=== PATIENT | female | born 1995 | race Caucasian/White ===

== ENCOUNTER 2016-07-04 11:29 | Inpatient (IN) | payer SELFPAY ==
[~2016-07-04] VITALS: Ht 162.6 cm; Wt 63.0 kg
[2016-07-04 11:35] VITALS: BP 114/70
[2016-07-04] MEDS ORDERED: MORPHINE SULFATE 4 MG/ML DISP.SYRIN. IV PRN (12:00)
[2016-07-04] MEDS ORDERED: oxyCODONE/APAP 5/325 1 TAB TABLET PO PRN (12:00)
[2016-07-04] MEDS ORDERED: VANCOMYCIN PER PHARMACY MC PRN (12:00)
[2016-07-04] MEDS ORDERED: ONDANSETRON PF 4 MG/2 ML VIAL. ONE (12:11)
[2016-07-04] MEDS ORDERED: DEXAMETHASONE SOD PHOS 20 MG/5 ML VIAL. ONE (12:11)
[2016-07-04] MEDS ORDERED: MIDAZOLAM HCL/PF 2 MG/2 ML VIAL. ONE (12:11)
[2016-07-04] MEDS ORDERED: LIDOCAINE 2% 100 MG/5 ML SYRINGE. ONE (12:11)
[2016-07-04] MEDS ORDERED: fentaNYL PF VIAL 100 MCG/2 ML VIAL ONE ×2 (12:11→13:25)
[2016-07-04] MEDS ORDERED: PROPOFOL 20 ML IV ONE ×2 (12:11→13:24)
[2016-07-04] MEDS ORDERED: DESFLURANE 61 TO 120 MINUTES IH ONE (12:11)
--- NOTE | 2016-07-04 12:42 | PDOC2 ---
CONSULT Date of Consult Date of Consult DATE: 07/04/16 TIME: 12:29 Reason for Consult Reason for Consult: perirectal abscess Identification/Chief Complaint Chief Complaint Lucille rectal pain and swelling Source Source: Patient History of Present Illness Reason for Visit: 20yo female with 3 day history of perirectal swelling and pain with fever. 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 Past Medical History Cardiovascular: No pertinent hx Pulmonary: No pertinent hx GI: No pertinent hx Heme/Onc: No pertinent hx Hepatobiliary: No pertinent hx Psych: No pertinent hx Rheumatologic: No pertinent hx Infectious disease: Other (MRSA) ENT: No pertinent hx Renal/: No pertinent hx Endocrine: No pertinent hx Dermatology: No pertinent hx Past Surgical History Past Surgical History: Other (I&D) Family History Family History: No Significant Social History No ALCOHOL: none Drugs: None Lives: with Family Current Medications Current Medications Current Medications Vancomycin HCl (Vanco Per Pharmacy) 1 each PRN DAILY PRN [facility] SEE COMMENTS; Start 07/04/16 at 12:00; Status UNV Docusate Sodium (Colace) 100 mg DAILY PO ; Start 07/05/16 at 09:00; Status UNV Polyethylene Glycol (miraLAX PACKET) 17 gm DAILY PO ; Start 07/05/16 at 09:00; Status UNV Oxycodone/ Acetaminophen (Percocet 5/325) 1 tab PRN Q4HRS PRN PO PAIN; Start at 12:00; Status UNV Morphine Sulfate 4 mg PRN Q2HR PRN IV PAIN; Start 07/04/16 at 12:00; Status UNV Desflurane (Suprane) 60 ml STK-MED ONCE IH ; Start 07/04/16 at 12:11; Stop at 12:12; Status DC Midazolam HCl (Versed) 2 mg STK-MED ONCE .ROUTE ; Start 07/04/16 at 12:11; Stop 07/04/16 at 12:12; Status DC Fentanyl Citrate (Fentanyl 2ml Vial) 100 mcg STK-MED ONCE .ROUTE ; Start at 12:11; Stop 07/04/16 at 12:12; Status DC Propofol 20 ml @ As Directed STK-MED ONCE IV ; Start 07/04/16 at 12:11; Stop 07/04 at 12:12; Status DC Ondansetron HCl (Zofran) 4 mg STK-MED ONCE .ROUTE ; Start 07/04/16 at 12:11; Stop 07/04/16 at 12:12; Status DC Dexamethasone Sodium Phosphate (Decadron) 20 mg STK-MED ONCE .ROUTE ; Start 07/04 at 12:11; Stop 07/04/16 at 12:12; Status DC Lidocaine HCl (Lidocaine HCl 2% Abboject) 100 mg STK-MED ONCE .ROUTE ; Start 07/04/16 at 12:11; Stop 07/04/16 at 12:12; Status DC ROS Gastrointestinal: Yes Other (perirectal pain) Physical Exam General: Alert, Oriented X3, Cooperative, moderate distress HEENT: Atraumatic, PERRLA, EOMI Lungs: Clear to auscultation, Normal air movement Heart: Regular rate, No murmurs Abdomen: Normal bowel sounds, Soft, No tenderness Extremities: No edema Skin: No significant lesion, Other (perirectal mass Tender to palpation) Neuro: Normal speech Psych/Mental Status: Mental status NL Vitals VITALS Vital Signs Date Time Temp Pulse Resp B/P (MAP) Pulse Ox O2 Delivery O2 Flow Rate FiO2 07/04/16 11:35 101.8 85 18 114/70 (85) 98 101.8 Assessment/Plan Assessment/Plan Perirectal abscess Plan I&D NEYDA RIDDLE MD July 04, 2016 12:42
[2016-07-04] MEDS ORDERED: VANCOMYCIN 1.5 GM in IV NORMAL SALINE 500ML BAG 500 ML IV ONE (13:30)
--- NOTE | 2016-07-04 13:33 | PDOC ---
BRIEF OPERATIVE NOTE Date: July 04, 2016 Pre-Op Diagnosis Perirectal abscess Post-Op Diagnosis Same Procedure Performed I&D perirectal abscess Surgeon Korey Anesthesia Type: General Blood Loss 10ml Specimens Obtained Cultures Findings as above Complications None NEYDA RIDDLE MD July 04, 2016 13:33
[2016-07-04] MEDS: POLYETHYLENE GLYCOL 3350 17 GM PACKET. PO SCH (15:05)
[2016-07-04] MEDS: DOCUSATE SODIUM 100 MG CAPSULE. PO SCH (15:06)
--- NOTE | 2016-07-04 15:53 | OP ---
DATE OF SURGERY: 07/04/2016 PREOPERATIVE DIAGNOSIS: Perirectal abscess. POSTOPERATIVE DIAGNOSIS: Perirectal abscess. PROCEDURE: Incision and drainage of perirectal abscess. SURGEON: Yordan Riddle M.D. INDICATIONS: The patient is a 20-year-old female who has had 3-day history of swelling on the left side of the rectum with pain. PROCEDURE PERFORMED: Incision and drainage was explained to the patient in detail. Risks, benefits were also discussed including bleeding and infection. Alternatives of this procedure were also discussed with the patient, who seemed to understand and gave verbal and written consent to have the procedure performed. DESCRIPTION OF PROCEDURE: The patient was taken to the operating room and placed in the supine position, general anesthesia was initiated. Once the patient was asleep and intubated, she was placed in low lithotomy positioning. Her perineum was prepped and draped in usual sterile fashion using Betadine scrub and solution. Using a 15 blade scalpel, the fluctuant area was incised. There was quite a bit of purulent material expressed. This was then flushed with saline. The wound was then packed with a quarter inch iodoform Nu Gauze, dressed with ABD, and mesh panties. The patient was awakened, extubated in the operating room, taken to recovery room in stable condition. All sponge, instrument counts listed as correct. Estimated blood loss 10 mL. YORDAN RIDDLE MD DR: KAUSHIK/ham JOB#: [id number] / [id number]
--- NOTE | 2016-07-04 16:32 | PDOC1 ---
History and Physical Date of Admission Date of Admission DATE: 07/04/16 TIME: 16:23 Identification/Chief Complaint Chief Complaint rectal pain Problems: Source Source: Chart review, Patient History of Present Illness History of Present Illness pt presented to the ER at [facility] today, complaining of new rectal pain, w. 3-day history of swelling on the left side of the rectum with pain. exam revealed small perirectal abcess, w/ erythema transfer here for surg eval, pt taken to OR by Dr. Nair for I+D, before I had seen pt. 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 Past Medical History Cardiovascular: No pertinent hx Pulmonary: No pertinent hx GI: No pertinent hx Heme/Onc: No pertinent hx Hepatobiliary: No pertinent hx Psych: No pertinent hx Rheumatologic: No pertinent hx Infectious disease: Other (MRSA) ENT: No pertinent hx Renal/: No pertinent hx Endocrine: No pertinent hx Dermatology: No pertinent hx Past Surgical History Past Surgical History: Other (I&D) Family History Family History: No Significant Social History Smoke: <1 pack per day ALCOHOL: none Drugs: None Current Medications Current Medications Current Medications Vancomycin HCl (Vanco Per Pharmacy) 1 each PRN DAILY PRN [facility] SEE COMMENTS; Start 07/04/16 at 12:00 Docusate Sodium (Colace) 100 mg DAILY PO Last administered on 07/04/16t 15:06; Start 07/04/16 at 14:00 Polyethylene Glycol (miraLAX PACKET) 17 gm DAILY PO Last administered on t 15:05; Start 07/04/16 at 14:00 Oxycodone/ Acetaminophen (Percocet 5/325) 1 tab PRN Q4HRS PRN PO PAIN; Start at 12:00 Morphine Sulfate 4 mg PRN Q2HR PRN IV PAIN; Start 07/04/16 at 12:00 Desflurane (Suprane) 60 ml STK-MED ONCE IH ; Start 07/04/16 at 12:11; Stop at 12:12; Status DC Midazolam HCl (Versed) 2 mg STK-MED ONCE .ROUTE ; Start 07/04/16 at 12:11; Stop 07/04/16 at 12:12; Status DC Fentanyl Citrate (Fentanyl 2ml Vial) 100 mcg STK-MED ONCE .ROUTE ; Start at 12:11; Stop 07/04/16 at 12:12; Status DC Propofol 20 ml @ As Directed STK-MED ONCE IV ; Start 07/04/16 at 12:11; Stop 07/04 at 12:12; Status DC Ondansetron HCl (Zofran) 4 mg STK-MED ONCE .ROUTE ; Start 07/04/16 at 12:11; Stop 07/04/16 at 12:12; Status DC Dexamethasone Sodium Phosphate (Decadron) 20 mg STK-MED ONCE .ROUTE ; Start 07/04 at 12:11; Stop 07/04/16 at 12:12; Status DC Lidocaine HCl (Lidocaine HCl 2% Abboject) 100 mg STK-MED ONCE .ROUTE ; Start 07/04/16 at 12:11; Stop 07/04/16 at 12:12; Status DC Vancomycin HCl 1.5 gm/Sodium Chloride 500 ml @ 250 mls/hr 1X ONCE IV Last administered on 07/04/16t 15:14; Start 07/04/16 at 13:30; Stop 07/04/16 at 15:29; Status DC Propofol 20 ml @ As Directed STK-MED ONCE IV ; Start 07/04/16 at 13:24; Stop 07/04 at 13:25; Status DC Fentanyl Citrate (Fentanyl 2ml Vial) 100 mcg STK-MED ONCE .ROUTE ; Start at 13:25; Stop 07/04/16 at 13:26; Status DC Ketorolac Tromethamine (Toradol) 15 mg Q6HRS IV ; Start 07/04/16 at 18:00; Stop 07/05/16 at 17:59 Allergies Allergies: Coded Allergies: No Known Drug Allergies (Unverified , 07/04/16) ROS General: No: Chills, Night Sweats, Fatigue, Malaise, Appetite, Other PSYCHOLOGICAL ROS: No: Anxiety, Behavioral Disorder, Concentration difficultie , Decreased libido, Depression, Disorientation, Hallucinations, Hostility, Irritablity, Memory difficulties, Mood Swings, Obsessive thoughts, Physical abuse, Sexual abuse, Sleep disturbances, Suicidal ideation, Other Eyes: No Blurry vision, No Decreased vision, No Double vision, No Dry eyes, No Excessive tearing, No Eye Pain, No Itchy Eyes, No Loss of vision, No Photophobia , No Scotomata, No Uses contacts, No Uses glasses, No Other HEENT: No: Heacaches, Visual Changes, Hearing change, Nasal congestion, Nasal discharge, Oral lesions, Sinus pain, Sore Throat, Epistaxis, Sneezing, Snoring, Tinnitus, Vertigo, Vocal changes, Other Respiratory: No: Cough, Hemoptysis, Orthopnea, Pleuritic Pain, Shortness of breath, SOB with excertion, Sputum Changes, Stridor, Tachypnea, Wheezing, Other Cardiovascular: No Chest Pain, No Palpitations, No Orthopnea, No Paroxysmal Noc. Dyspnea, No Edema, No Lt Headedness, No Other Gastrointestinal: No Nausea, No Vomiting, No Abdominal Pain, No Diarrhea, No Constipation, No Melena, No Hematochezia, No Other Genitourinary: No Dysuria, No Frequency, No Incontinence, No Hematuria, No Retention, No Discharge, No Urgency, No Pain, No Flank Pain, No Other, No , No , No , No , No , No , No Musculoskeletal: No Gait Disturbance, No Joint Pain, No Joint Stiffness, No Joint Swelling, No Muscle Pain, No Muscular Weakness, No Pain In:, No Swelling In:, No Other Neurological: No Behavorial Changes, No Bowel/Bladder ControlChng, No Confusion , No Dizziness, No Gait Disturbance, No Headaches, No Impaired Coord/balance, No Memory Loss, No Numbness/Tingling, No Seizures, No Speech Problems, No Tremors, No Visual Changes, No Weakness, No Other Skin: No Dry Skin, No Eczema, No Hair Changes, No Lumps, No Mole Changes, No Mottling, No Nail Changes, No Pruritus, No Rash, No Skin Lesion Changes, No Other, No Acne Physical Exam General: Alert, Oriented X3, Cooperative, No acute distress HEENT: Atraumatic, PERRLA, EOMI, Mucous membr. moist/pink Heart: no gallops, no murmurs Abdomen: Normal bowel sounds, Soft Rectal Exam: not examined Extremities: No clubbing, No cyanosis, No edema, Normal pulses Skin: No breakdown, No significant lesion Neuro: Normal speech, Normal tone, Sensation intact, Cranial nerves 3-12 NL Psych/Mental Status: Mental status NL, Mood NL Vitals Vitals Vital Signs Date Time Temp Pulse Resp B/P (MAP) Pulse Ox O2 Delivery O2 Flow Rate FiO2 07/04/16 14:39 99.0 82 20 110/62 95 Room Air 99.0 07/04/16 13:54 8 Labs Labs Na 142, K+ 4.1, Cr. 0.8, glucose 105 WBC 18 VTE Prophylaxis Ordered VTE Prophylaxis Devices: No VTE Pharmacological Prophylaxi: Yes Assessment/Plan Assessment/Plan sepsis,. WBC 18, fever, tachycardia, tachypnea, cx done at outside ER consult ID perirectal abcess hx MRSA, dosed vanco anxiety d/o, no meds tobaccoism, pre-comtemplation, self medicates for anxiety admit wound care NIURKA LEW MD July 04, 2016 16:32
[2016-07-04] MEDS: KETOROLAC 15 MG/ML VIAL. IV SCH ×2 (18:15→23:09)
[2016-07-04 19:24] VITALS: BP 124/74
[2016-07-04 19:25] VITALS: BP 124/76
[2016-07-04] MEDS: VANCOMYCIN 1 GM in IV NORMAL SALINE 250ML 250 ML IV SCH (23:10)
[2016-07-04 23:15] VITALS: BP 109/52
[2016-07-05 03:00] VITALS: BP 102/50
[2016-07-05 05:23] LABS: BASO # 0.1 x10^3/uL (0.0-0.2); BASO % 1 % (0-3); EOS % 1 % (0-3); HEMATOCRIT 34.7 % (36.0-47.0); HEMOGLOBIN 11.5 g/dL (12.0-15.5); LYMPH % 12 % (24-48); MEAN CORPUSCULAR HEMOGLOBIN 28 pg (25-35); MEAN CORPUSCULAR HGB CONC 33 g/dL (31-37); MEAN CORPUSCULAR VOLUME 85 fL (79-100); MONO % 6 % (0-9); NEUT % 81 % (31-73); PLATELET COUNT 219 x10^3/uL (140-400); RED BLOOD COUNT 4.11 x10^6/uL (3.50-5.40); RED CELL DISTRIBUTION WIDTH 13.6 % (11.5-14.5); WHITE BLOOD COUNT 16.4 x10^3/uL (4.0-11.0)
[2016-07-05 05:51] LABS: ALBUMIN 2.7 g/dL (3.4-5.0); ALBUMIN/GLOBULIN RATIO 0.8 (1.0-1.7); CALCIUM 8.8 mg/dL (8.5-10.1); CREATININE 0.5 mg/dL (0.6-1.0); GFR 154.3; POTASSIUM 4.1 mmol/L (3.5-5.1); TOTAL BILIRUBIN 0.2 mg/dL (0.2-1.0); TOTAL PROTEIN 6.3 g/dL (6.4-8.2)
[2016-07-05] MEDS: KETOROLAC 15 MG/ML VIAL. IV SCH ×2 (06:48→12:00)
[2016-07-05] MEDS: VANCOMYCIN 1 GM in IV NORMAL SALINE 250ML 250 ML IV SCH (06:48)
[2016-07-05 07:48] VITALS: BP 111/60
[2016-07-05] MEDS ORDERED: HYDROcodone/APAP 5/325MG 1 TAB TABLET PO PRN (08:45)
[2016-07-05] MEDS: DOCUSATE SODIUM 100 MG CAPSULE. PO SCH (08:57)
[2016-07-05] MEDS: POLYETHYLENE GLYCOL 3350 17 GM PACKET. PO SCH (08:57)
--- NOTE | 2016-07-05 09:05 | PDOC ---
[employer] 07/05/16 0905: SURGICAL PROGRESS NOTE Subjective tolerating diet some pain to wound, although greatly improved from admission Vital Signs Vital Signs Date Time Temp Pulse Resp B/P (MAP) Pulse Ox O2 Delivery O2 Flow Rate FiO2 07/05/16 07:48 98.1 61 18 111/60 (77) 98 Room Air 98.1 07/04/16 20:00 8.0 I&O Intake and Output 07/05/16 07:00 Intake Total 1097 ml Output Total 0 ml Balance 1097 ml Intake Oral 350 ml IV Total 747 ml Output Urine Total 0 ml # Voids 2 General: Alert, Oriented X3, Cooperative, No acute distress Skin: Other (perirectal wound some induration, packing in place) Labs Laboratory Tests Test 07/05/16 04:43 07/05/16 04:48 Sodium Level 140 mmol/L (136-145) Potassium Level 4.1 mmol/L (3.5-5.1) Chloride Level 107 mmol/L (98-107) Carbon Dioxide Level 24 mmol/L (21-32) Anion Gap 9 (6-14) Blood Urea Nitrogen 12 mg/dL (7-20) Creatinine 0.5 mg/dL (0.6-1.0) Estimated GFR (Cockcroft-Gault) 154.3 BUN/Creatinine Ratio 24 (6-20) Glucose Level 117 mg/dL (70-99) Calcium Level 8.8 mg/dL (8.5-10.1) Total Bilirubin 0.2 mg/dL (0.2-1.0) Aspartate Amino Transf (AST/SGOT) 11 U/L (15-37) Alanine Aminotransferase (ALT/SGPT) 16 U/L (14-59) Alkaline Phosphatase 49 U/L (46-116) Total Protein 6.3 g/dL (6.4-8.2) Albumin 2.7 g/dL (3.4-5.0) Albumin/Globulin Ratio 0.8 (1.0-1.7) White Blood Count 16.4 x10^3/uL (4.0-11.0) Red Blood Count 4.11 x10^6/uL (3.50-5.40) Hemoglobin 11.5 g/dL (12.0-15.5) Hematocrit 34.7 % (36.0-47.0) Mean Corpuscular Volume 85 fL (79-100) Mean Corpuscular Hemoglobin 28 pg (25-35) Mean Corpuscular Hemoglobin Concent 33 g/dL (31-37) Red Cell Distribution Width 13.6 % (11.5-14.5) Platelet Count 219 x10^3/uL (140-400) Neutrophils (%) (Auto) 81 % (31-73) Lymphocytes (%) (Auto) 12 % (24-48) Monocytes (%) (Auto) 6 % (0-9) Eosinophils (%) (Auto) 1 % (0-3) Basophils (%) (Auto) 1 % (0-3) Neutrophils # (Auto) 13.3 x10^3uL (1.8-7.7) Lymphocytes # (Auto) 2.0 x10^3/uL (1.0-4.8) Monocytes # (Auto) 1.0 x10^3/uL (0.0-1.1) Eosinophils # (Auto) 0.1 x10^3/uL (0.0-0.7) Basophils # (Auto) 0.1 x10^3/uL (0.0-0.2) Laboratory Tests Test 07/05/16 04:43 07/05/16 04:48 Sodium Level 140 mmol/L (136-145) Potassium Level 4.1 mmol/L (3.5-5.1) Chloride Level 107 mmol/L (98-107) Carbon Dioxide Level 24 mmol/L (21-32) Anion Gap 9 (6-14) Blood Urea Nitrogen 12 mg/dL (7-20) Creatinine 0.5 mg/dL (0.6-1.0) Estimated GFR (Cockcroft-Gault) 154.3 BUN/Creatinine Ratio 24 (6-20) Glucose Level 117 mg/dL (70-99) Calcium Level 8.8 mg/dL (8.5-10.1) Total Bilirubin 0.2 mg/dL (0.2-1.0) Aspartate Amino Transf (AST/SGOT) 11 U/L (15-37) Alanine Aminotransferase (ALT/SGPT) 16 U/L (14-59) Alkaline Phosphatase 49 U/L (46-116) Total Protein 6.3 g/dL (6.4-8.2) Albumin 2.7 g/dL (3.4-5.0) Albumin/Globulin Ratio 0.8 (1.0-1.7) White Blood Count 16.4 x10^3/uL (4.0-11.0) Red Blood Count 4.11 x10^6/uL (3.50-5.40) Hemoglobin 11.5 g/dL (12.0-15.5) Hematocrit 34.7 % (36.0-47.0) Mean Corpuscular Volume 85 fL (79-100) Mean Corpuscular Hemoglobin 28 pg (25-35) Mean Corpuscular Hemoglobin Concent 33 g/dL (31-37) Red Cell Distribution Width 13.6 % (11.5-14.5) Platelet Count 219 x10^3/uL (140-400) Neutrophils (%) (Auto) 81 % (31-73) Lymphocytes (%) (Auto) 12 % (24-48) Monocytes (%) (Auto) 6 % (0-9) Eosinophils (%) (Auto) 1 % (0-3) Basophils (%) (Auto) 1 % (0-3) Neutrophils # (Auto) 13.3 x10^3uL (1.8-7.7) Lymphocytes # (Auto) 2.0 x10^3/uL (1.0-4.8) Monocytes # (Auto) 1.0 x10^3/uL (0.0-1.1) Eosinophils # (Auto) 0.1 x10^3/uL (0.0-0.7) Basophils # (Auto) 0.1 x10^3/uL (0.0-0.2) Problem List s/p I&D perirectal abscess daily packing of wound continue abx Problems: NEYDA RIDDLE MD 07/05/16 0925: SURGICAL PROGRESS NOTE Assessment/Plan Agree with Catracho's assessment and plan. Problems: [employer] July 05, 2016 09:05 NEYDA RIDDLE MD July 05, 2016 09:25
[2016-07-05 09:30] LABS: PLT ESTIMATE ADEQUATE (ADEQUATE)
--- NOTE | 2016-07-05 11:11 | PDOC ---
Infectious Disease Note Subjective Subjective ROS ROS Vital Sign Vital Signs Vital Signs Date Time Temp Pulse Resp B/P (MAP) Pulse Ox O2 Delivery O2 Flow Rate FiO2 07/05/16 07:48 98.1 61 18 111/60 (77) 98 Room Air 98.1 07/04/16 20:00 8.0 Labs Lab Laboratory Tests Test 07/05/16 04:43 07/05/16 04:48 Sodium Level 140 mmol/L (136-145) Potassium Level 4.1 mmol/L (3.5-5.1) Chloride Level 107 mmol/L (98-107) Carbon Dioxide Level 24 mmol/L (21-32) Anion Gap 9 (6-14) Blood Urea Nitrogen 12 mg/dL (7-20) Creatinine 0.5 mg/dL (0.6-1.0) Estimated GFR (Cockcroft-Gault) 154.3 BUN/Creatinine Ratio 24 (6-20) Glucose Level 117 mg/dL (70-99) Calcium Level 8.8 mg/dL (8.5-10.1) Total Bilirubin 0.2 mg/dL (0.2-1.0) Aspartate Amino Transf (AST/SGOT) 11 U/L (15-37) Alanine Aminotransferase (ALT/SGPT) 16 U/L (14-59) Alkaline Phosphatase 49 U/L (46-116) Total Protein 6.3 g/dL (6.4-8.2) Albumin 2.7 g/dL (3.4-5.0) Albumin/Globulin Ratio 0.8 (1.0-1.7) White Blood Count 16.4 x10^3/uL (4.0-11.0) Red Blood Count 4.11 x10^6/uL (3.50-5.40) Hemoglobin 11.5 g/dL (12.0-15.5) Hematocrit 34.7 % (36.0-47.0) Mean Corpuscular Volume 85 fL (79-100) Mean Corpuscular Hemoglobin 28 pg (25-35) Mean Corpuscular Hemoglobin Concent 33 g/dL (31-37) Red Cell Distribution Width 13.6 % (11.5-14.5) Platelet Count 219 x10^3/uL (140-400) Neutrophils (%) (Auto) 81 % (31-73) Lymphocytes (%) (Auto) 12 % (24-48) Monocytes (%) (Auto) 6 % (0-9) Eosinophils (%) (Auto) 1 % (0-3) Basophils (%) (Auto) 1 % (0-3) Neutrophils # (Auto) 13.3 x10^3uL (1.8-7.7) Lymphocytes # (Auto) 2.0 x10^3/uL (1.0-4.8) Monocytes # (Auto) 1.0 x10^3/uL (0.0-1.1) Eosinophils # (Auto) 0.1 x10^3/uL (0.0-0.7) Basophils # (Auto) 0.1 x10^3/uL (0.0-0.2) Segmented Neutrophils % 85 % (35-66) Band Neutrophils % 2 % (0-9) Lymphocytes % 7 % (24-48) Monocytes % 6 % (0-10) Platelet Estimate Adequate (ADEQUATE) Objective Assessment Lucille-rectal abscess - GNR s/p I and D, 5 Leukocytosis - s/p Dexamethasone h/o SSTI MRSA Plan Plan of Care Dose Invanz times one Home on po Augmentin F/u Jono 07/07 and if worsens needs to return Thank you # [id number] Attending Co-Sign Attending Co-Sign The patient was seen and interviewed as well as examined at the bedside. The chart was reviewed. The case was discussed. Agree with the plan of care. MY MCFARLANE APRN July 05, 2016 11:11 BROOKLYNN JEFFRIES MD July 05, 2016 12:57
[2016-07-05 11:22] VITALS: BP 123/75
--- NOTE | 2016-07-05 11:26 | PDOC ---
PROGRESS NOTES Chief Complaint Chief Complaint perirectal abcess s/p I and D 07/04/16 hx MRSA, dosed vanco anxiety d/o, noS tobaccoism, pre-comtemplation, self medicates for anxiety History of Present Illness History of Present Illness Wants to go home Wound looks good WBC 16 no fevers Plan: NO dc today per gS Follow ID and gS recs Dw RN and pt Vitals Vitals Vital Signs Date Time Temp Pulse Resp B/P (MAP) Pulse Ox O2 Delivery O2 Flow Rate FiO2 07/05/16 11:22 98.1 98 18 123/75 (91) 98 Room Air 98.1 07/04/16 20:00 8.0 Physical Exam General: Alert, Oriented X3, Cooperative, No acute distress Heart: Regular rate, No murmurs Abdomen: Normal bowel sounds, Soft Extremities: No clubbing, No cyanosis, No edema, Normal pulses Skin: Other (perirectal wound some induration, packing in place) Labs LABS Laboratory Tests Test 07/05/16 04:43 07/05/16 04:48 Sodium Level 140 mmol/L (136-145) Potassium Level 4.1 mmol/L (3.5-5.1) Chloride Level 107 mmol/L (98-107) Carbon Dioxide Level 24 mmol/L (21-32) Anion Gap 9 (6-14) Blood Urea Nitrogen 12 mg/dL (7-20) Creatinine 0.5 mg/dL (0.6-1.0) Estimated GFR (Cockcroft-Gault) 154.3 BUN/Creatinine Ratio 24 (6-20) Glucose Level 117 mg/dL (70-99) Calcium Level 8.8 mg/dL (8.5-10.1) Total Bilirubin 0.2 mg/dL (0.2-1.0) Aspartate Amino Transf (AST/SGOT) 11 U/L (15-37) Alanine Aminotransferase (ALT/SGPT) 16 U/L (14-59) Alkaline Phosphatase 49 U/L (46-116) Total Protein 6.3 g/dL (6.4-8.2) Albumin 2.7 g/dL (3.4-5.0) Albumin/Globulin Ratio 0.8 (1.0-1.7) White Blood Count 16.4 x10^3/uL (4.0-11.0) Red Blood Count 4.11 x10^6/uL (3.50-5.40) Hemoglobin 11.5 g/dL (12.0-15.5) Hematocrit 34.7 % (36.0-47.0) Mean Corpuscular Volume 85 fL (79-100) Mean Corpuscular Hemoglobin 28 pg (25-35) Mean Corpuscular Hemoglobin Concent 33 g/dL (31-37) Red Cell Distribution Width 13.6 % (11.5-14.5) Platelet Count 219 x10^3/uL (140-400) Neutrophils (%) (Auto) 81 % (31-73) Lymphocytes (%) (Auto) 12 % (24-48) Monocytes (%) (Auto) 6 % (0-9) Eosinophils (%) (Auto) 1 % (0-3) Basophils (%) (Auto) 1 % (0-3) Neutrophils # (Auto) 13.3 x10^3uL (1.8-7.7) Lymphocytes # (Auto) 2.0 x10^3/uL (1.0-4.8) Monocytes # (Auto) 1.0 x10^3/uL (0.0-1.1) Eosinophils # (Auto) 0.1 x10^3/uL (0.0-0.7) Basophils # (Auto) 0.1 x10^3/uL (0.0-0.2) Segmented Neutrophils % 85 % (35-66) Band Neutrophils % 2 % (0-9) Lymphocytes % 7 % (24-48) Monocytes % 6 % (0-10) Platelet Estimate Adequate (ADEQUATE) Review of Systems Review of Systems all 14 pt neg Comment Review of Relevant I have reviewed the following items jody (where applicable) has been applied. Labs Laboratory Tests Test 07/05/16 04:43 07/05/16 04:48 Sodium Level 140 mmol/L (136-145) Potassium Level 4.1 mmol/L (3.5-5.1) Chloride Level 107 mmol/L (98-107) Carbon Dioxide Level 24 mmol/L (21-32) Anion Gap 9 (6-14) Blood Urea Nitrogen 12 mg/dL (7-20) Creatinine 0.5 mg/dL (0.6-1.0) Estimated GFR (Cockcroft-Gault) 154.3 BUN/Creatinine Ratio 24 (6-20) Glucose Level 117 mg/dL (70-99) Calcium Level 8.8 mg/dL (8.5-10.1) Total Bilirubin 0.2 mg/dL (0.2-1.0) Aspartate Amino Transf (AST/SGOT) 11 U/L (15-37) Alanine Aminotransferase (ALT/SGPT) 16 U/L (14-59) Alkaline Phosphatase 49 U/L (46-116) Total Protein 6.3 g/dL (6.4-8.2) Albumin 2.7 g/dL (3.4-5.0) Albumin/Globulin Ratio 0.8 (1.0-1.7) White Blood Count 16.4 x10^3/uL (4.0-11.0) Red Blood Count 4.11 x10^6/uL (3.50-5.40) Hemoglobin 11.5 g/dL (12.0-15.5) Hematocrit 34.7 % (36.0-47.0) Mean Corpuscular Volume 85 fL (79-100) Mean Corpuscular Hemoglobin 28 pg (25-35) Mean Corpuscular Hemoglobin Concent 33 g/dL (31-37) Red Cell Distribution Width 13.6 % (11.5-14.5) Platelet Count 219 x10^3/uL (140-400) Neutrophils (%) (Auto) 81 % (31-73) Lymphocytes (%) (Auto) 12 % (24-48) Monocytes (%) (Auto) 6 % (0-9) Eosinophils (%) (Auto) 1 % (0-3) Basophils (%) (Auto) 1 % (0-3) Neutrophils # (Auto) 13.3 x10^3uL (1.8-7.7) Lymphocytes # (Auto) 2.0 x10^3/uL (1.0-4.8) Monocytes # (Auto) 1.0 x10^3/uL (0.0-1.1) Eosinophils # (Auto) 0.1 x10^3/uL (0.0-0.7) Basophils # (Auto) 0.1 x10^3/uL (0.0-0.2) Segmented Neutrophils % 85 % (35-66) Band Neutrophils % 2 % (0-9) Lymphocytes % 7 % (24-48) Monocytes % 6 % (0-10) Platelet Estimate Adequate (ADEQUATE) Laboratory Tests Test 07/05/16 04:43 07/05/16 04:48 Sodium Level 140 mmol/L (136-145) Potassium Level 4.1 mmol/L (3.5-5.1) Chloride Level 107 mmol/L (98-107) Carbon Dioxide Level 24 mmol/L (21-32) Anion Gap 9 (6-14) Blood Urea Nitrogen 12 mg/dL (7-20) Creatinine 0.5 mg/dL (0.6-1.0) Estimated GFR (Cockcroft-Gault) 154.3 BUN/Creatinine Ratio 24 (6-20) Glucose Level 117 mg/dL (70-99) Calcium Level 8.8 mg/dL (8.5-10.1) Total Bilirubin 0.2 mg/dL (0.2-1.0) Aspartate Amino Transf (AST/SGOT) 11 U/L (15-37) Alanine Aminotransferase (ALT/SGPT) 16 U/L (14-59) Alkaline Phosphatase 49 U/L (46-116) Total Protein 6.3 g/dL (6.4-8.2) Albumin 2.7 g/dL (3.4-5.0) Albumin/Globulin Ratio 0.8 (1.0-1.7) White Blood Count 16.4 x10^3/uL (4.0-11.0) Red Blood Count 4.11 x10^6/uL (3.50-5.40) Hemoglobin 11.5 g/dL (12.0-15.5) Hematocrit 34.7 % (36.0-47.0) Mean Corpuscular Volume 85 fL (79-100) Mean Corpuscular Hemoglobin 28 pg (25-35) Mean Corpuscular Hemoglobin Concent 33 g/dL (31-37) Red Cell Distribution Width 13.6 % (11.5-14.5) Platelet Count 219 x10^3/uL (140-400) Neutrophils (%) (Auto) 81 % (31-73) Lymphocytes (%) (Auto) 12 % (24-48) Monocytes (%) (Auto) 6 % (0-9) Eosinophils (%) (Auto) 1 % (0-3) Basophils (%) (Auto) 1 % (0-3) Neutrophils # (Auto) 13.3 x10^3uL (1.8-7.7) Lymphocytes # (Auto) 2.0 x10^3/uL (1.0-4.8) Monocytes # (Auto) 1.0 x10^3/uL (0.0-1.1) Eosinophils # (Auto) 0.1 x10^3/uL (0.0-0.7) Basophils # (Auto) 0.1 x10^3/uL (0.0-0.2) Segmented Neutrophils % 85 % (35-66) Band Neutrophils % 2 % (0-9) Lymphocytes % 7 % (24-48) Monocytes % 6 % (0-10) Platelet Estimate Adequate (ADEQUATE) Microbiology 07/04/16 Gram Stain - Final, Complete Medications Current Medications Vancomycin HCl (Vanco Per Pharmacy) 1 each PRN DAILY PRN MC SEE COMMENTS Last administered on 07/04/16 17:41; Start 07/04/16 at 12:00 Docusate Sodium (Colace) 100 mg DAILY PO Last administered on 07/05/16 08:57; Start 07/04/16 at 14:00 Polyethylene Glycol (miraLAX PACKET) 17 gm DAILY PO Last administered on 08:57; Start 07/04/16 at 14:00 Oxycodone/ Acetaminophen (Percocet 5/325) 1 tab PRN Q4HRS PRN PO PAIN; Start at 12:00 Morphine Sulfate 4 mg PRN Q2HR PRN IV PAIN; Start 07/04/16 at 12:00 Desflurane (Suprane) 60 ml STK-MED ONCE IH ; Start 07/04/16 at 12:11; Stop at 12:12; Status DC Midazolam HCl (Versed) 2 mg STK-MED ONCE .ROUTE ; Start 07/04/16 at 12:11; Stop 07/04/16 at 12:12; Status DC Fentanyl Citrate (Fentanyl 2ml Vial) 100 mcg STK-MED ONCE .ROUTE ; Start at 12:11; Stop 07/04/16 at 12:12; Status DC Propofol 20 ml @ As Directed STK-MED ONCE IV ; Start 07/04/16 at 12:11; Stop 07/04 at 12:12; Status DC Ondansetron HCl (Zofran) 4 mg STK-MED ONCE .ROUTE ; Start 07/04/16 at 12:11; Stop 07/04/16 at 12:12; Status DC Dexamethasone Sodium Phosphate (Decadron) 20 mg STK-MED ONCE .ROUTE ; Start 07/04 at 12:11; Stop 07/04/16 at 12:12; Status DC Lidocaine HCl (Lidocaine HCl 2% Abboject) 100 mg STK-MED ONCE .ROUTE ; Start 07/04/16 at 12:11; Stop 07/04/16 at 12:12; Status DC Vancomycin HCl 1.5 gm/Sodium Chloride 500 ml @ 250 mls/hr 1X ONCE IV Last administered on 07/04/16 15:14; Start 07/04/16 at 13:30; Stop 07/04/16 at 15:29; Status DC Propofol 20 ml @ As Directed STK-MED ONCE IV ; Start 07/04/16 at 13:24; Stop 07/04 at 13:25; Status DC Fentanyl Citrate (Fentanyl 2ml Vial) 100 mcg STK-MED ONCE .ROUTE ; Start at 13:25; Stop 07/04/16 at 13:26; Status DC Ketorolac Tromethamine (Toradol) 15 mg Q6HRS IV Last administered on 07/05/16 06:48; Start 07/04/16 at 18:00; Stop 07/05/16 at 17:59 Vancomycin HCl 1 gm/Sodium Chloride 250 ml @ 250 mls/hr Q8H IV Last administered on 07/05/16 06:48; Start 07/04/16 at 23:00 Vancomycin HCl 1 each 1X ONCE MC ; Start 07/05/16 at 14:30; Stop 07/05/16 at 14: 31 Acetaminophen/ Hydrocodone Bitart (Lortab 5/325) 1 tab PRN Q4HRS PRN PO PAIN; Start 07/05/16 at 08:45 Enoxaparin Sodium (Lovenox 40mg Syringe) 40 mg Q24H SQ ; Start 07/05/16 at 15:00 Vitals/I & O Vital Sign - Last 24 Hours 07/04/16 07/04/16 07/04/16 07/04/16 11:35 11:35 12:42 13:38 Temp 101.8 101.8 99.6 101.8 101.8 99.6 Pulse 85 85 93 Resp 18 18 20 B/P (MAP) 114/70 (85) 114/70 (85) 121/70 Pulse Ox 98 98 98 O2 Delivery Room Air Mask O2 Flow Rate 8 07/04/16 07/04/16 07/04/16 07/04/16 13:39 13:54 14:09 14:24 Temp 99 99 99.0 99.0 99.0 99.0 99.0 99.0 Pulse 80 78 90 97 Resp 18 18 18 20 B/P (MAP) 102/50 102/47 115/65 107/62 Pulse Ox 100 100 92 94 O2 Delivery Simple Mask Simple Mask Room Air Room Air O2 Flow Rate 8 8 07/04/16 07/04/16 07/04/16 07/04/16 14:39 19:24 19:25 20:00 Temp 99.0 98.9 98.9 99.0 98.9 98.9 Pulse 82 90 90 Resp 20 18 B/P (MAP) 110/62 124/74 (91) 124/76 (92) Pulse Ox 95 96 96 O2 Delivery Room Air Room Air Room Air O2 Flow Rate 8.0 07/04/16 07/05/16 07/05/16 07/05/16 23:15 03:00 07:48 11:22 Temp 98.4 98.3 98.1 98.1 98.4 98.3 98.1 98.1 Pulse 81 54 61 98 Resp 18 18 B/P (MAP) 109/52 (71) 102/50 (67) 111/60 (77) 123/75 (91) Pulse Ox 98 98 98 98 O2 Delivery Room Air Room Air Room Air Room Air Intake and Output 07/04/16 07/04/16 07/05/16 15:00 23:00 07:00 Intake Total 50 ml 797 ml 250 ml Output Total 0 ml Balance 50 ml 797 ml 250 ml AVERY LOCO MD July 05, 2016 11:26
[2016-07-05] MEDS ORDERED: ERTAPENEM 1 GM in IV NORMAL SALINE 50ML 50 ML IV ONE (13:30)
[2016-07-05] MEDS ORDERED: AMOX1TAB61 PO (13:39)
--- NOTE | 2016-07-05 13:40 | PDOC3 ---
Discharge Summary Visit Information Date of Admission: July 04, 2016 Date of Discharge: July 05, 2016 Admitting Diagnosis Comment: perirectal abcess s/p I and D 07/04/16 hx MRSA, dosed vanco anxiety d/o, noS tobaccoism, pre-comtemplation, self medicates for anxiety Brief Hospital Course Allergies Allergies Coded Allergies Type Severity Reaction Last Updated Verified No Known Drug Allergies 07/04/16 No Vital Signs Vital Signs Date Time Temp Pulse Resp B/P (MAP) Pulse Ox O2 Delivery O2 Flow Rate FiO2 07/05/16 11:22 98.1 98 18 123/75 (91) 98 Room Air 98.1 07/04/16 20:00 8.0 Lab Results Laboratory Tests Test 07/05/16 04:43 07/05/16 04:48 Sodium Level 140 mmol/L (136-145) Potassium Level 4.1 mmol/L (3.5-5.1) Chloride Level 107 mmol/L (98-107) Carbon Dioxide Level 24 mmol/L (21-32) Anion Gap 9 (6-14) Blood Urea Nitrogen 12 mg/dL (7-20) Creatinine 0.5 mg/dL (0.6-1.0) Estimated GFR (Cockcroft-Gault) 154.3 BUN/Creatinine Ratio 24 (6-20) Glucose Level 117 mg/dL (70-99) Calcium Level 8.8 mg/dL (8.5-10.1) Total Bilirubin 0.2 mg/dL (0.2-1.0) Aspartate Amino Transf (AST/SGOT) 11 U/L (15-37) Alanine Aminotransferase (ALT/SGPT) 16 U/L (14-59) Alkaline Phosphatase 49 U/L (46-116) Total Protein 6.3 g/dL (6.4-8.2) Albumin 2.7 g/dL (3.4-5.0) Albumin/Globulin Ratio 0.8 (1.0-1.7) White Blood Count 16.4 x10^3/uL (4.0-11.0) Red Blood Count 4.11 x10^6/uL (3.50-5.40) Hemoglobin 11.5 g/dL (12.0-15.5) Hematocrit 34.7 % (36.0-47.0) Mean Corpuscular Volume 85 fL (79-100) Mean Corpuscular Hemoglobin 28 pg (25-35) Mean Corpuscular Hemoglobin Concent 33 g/dL (31-37) Red Cell Distribution Width 13.6 % (11.5-14.5) Platelet Count 219 x10^3/uL (140-400) Neutrophils (%) (Auto) 81 % (31-73) Lymphocytes (%) (Auto) 12 % (24-48) Monocytes (%) (Auto) 6 % (0-9) Eosinophils (%) (Auto) 1 % (0-3) Basophils (%) (Auto) 1 % (0-3) Neutrophils # (Auto) 13.3 x10^3uL (1.8-7.7) Lymphocytes # (Auto) 2.0 x10^3/uL (1.0-4.8) Monocytes # (Auto) 1.0 x10^3/uL (0.0-1.1) Eosinophils # (Auto) 0.1 x10^3/uL (0.0-0.7) Basophils # (Auto) 0.1 x10^3/uL (0.0-0.2) Segmented Neutrophils % 85 % (35-66) Band Neutrophils % 2 % (0-9) Lymphocytes % 7 % (24-48) Monocytes % 6 % (0-10) Platelet Estimate Adequate (ADEQUATE) Laboratory Tests Test 07/05/16 04:43 07/05/16 04:48 Sodium Level 140 mmol/L (136-145) Potassium Level 4.1 mmol/L (3.5-5.1) Chloride Level 107 mmol/L (98-107) Carbon Dioxide Level 24 mmol/L (21-32) Anion Gap 9 (6-14) Blood Urea Nitrogen 12 mg/dL (7-20) Creatinine 0.5 mg/dL (0.6-1.0) Estimated GFR (Cockcroft-Gault) 154.3 BUN/Creatinine Ratio 24 (6-20) Glucose Level 117 mg/dL (70-99) Calcium Level 8.8 mg/dL (8.5-10.1) Total Bilirubin 0.2 mg/dL (0.2-1.0) Aspartate Amino Transf (AST/SGOT) 11 U/L (15-37) Alanine Aminotransferase (ALT/SGPT) 16 U/L (14-59) Alkaline Phosphatase 49 U/L (46-116) Total Protein 6.3 g/dL (6.4-8.2) Albumin 2.7 g/dL (3.4-5.0) Albumin/Globulin Ratio 0.8 (1.0-1.7) White Blood Count 16.4 x10^3/uL (4.0-11.0) Red Blood Count 4.11 x10^6/uL (3.50-5.40) Hemoglobin 11.5 g/dL (12.0-15.5) Hematocrit 34.7 % (36.0-47.0) Mean Corpuscular Volume 85 fL (79-100) Mean Corpuscular Hemoglobin 28 pg (25-35) Mean Corpuscular Hemoglobin Concent 33 g/dL (31-37) Red Cell Distribution Width 13.6 % (11.5-14.5) Platelet Count 219 x10^3/uL (140-400) Neutrophils (%) (Auto) 81 % (31-73) Lymphocytes (%) (Auto) 12 % (24-48) Monocytes (%) (Auto) 6 % (0-9) Eosinophils (%) (Auto) 1 % (0-3) Basophils (%) (Auto) 1 % (0-3) Neutrophils # (Auto) 13.3 x10^3uL (1.8-7.7) Lymphocytes # (Auto) 2.0 x10^3/uL (1.0-4.8) Monocytes # (Auto) 1.0 x10^3/uL (0.0-1.1) Eosinophils # (Auto) 0.1 x10^3/uL (0.0-0.7) Basophils # (Auto) 0.1 x10^3/uL (0.0-0.2) Segmented Neutrophils % 85 % (35-66) Band Neutrophils % 2 % (0-9) Lymphocytes % 7 % (24-48) Monocytes % 6 % (0-10) Platelet Estimate Adequate (ADEQUATE) Brief Hospital Course Ms. Davies is a 20 old female admitted for perirectal abscess, underwent I and D, better post op, NO fevers WBC 16, cleared by ID and GS to go home, pt wanted to go home 2 visits/2 notes today time 31 mins Discharge Information Condition at Discharge: Improved, Stable Disposition/Orders: D/C to Home AVERY LOCO MD July 05, 2016 13:40
[2016-07-05] MEDS ORDERED: ENOXAPARIN 40 MG/0.4 ML SYRINGE. SQ SCH (15:00)
--- NOTE | 2016-07-06 01:09 | CONS ---
DATE OF CONSULTATION: 07/05/2016 PATIENT'S ROOM: 669. REQUESTING PHYSICIAN: Dr. Sandoval. REASON FOR CONSULTATION: Perirectal abscess. HISTORY OF PRESENT ILLNESS: The patient is a pleasant 20-year-old female with history of MRSA abscesses x 1 episode, although she has two abscesses. She is status post I and D at age 14. She works as a inspector tool and she took a break approximately at 02:00 on 07/02/2016, when she sat down, she had experienced some pain. She denies any trauma to the area. She had taken some fcks-wog-rrowerv medications, also took a hot bath and presented [place] [facility] [place] She was placed on vancomycin, but she was taken to the operating room by Dr. Nair on 07/04/2016. There was a fluctuant area, has a quite a bit of purulent material that was expressed. It was packed with Nu Gauze. Cultures were obtained. Cultures are now returned positive for gram-negative dorothy. Prior to admission, she denied any fevers, chills or sweats. No headaches, sore throat, cough or chest pain and states she is doing much better. PAST MEDICAL HISTORY: Essentially positive for the previous MRSA abscesses. PAST SURGICAL HISTORY: Positive for previous I and D. REVIEW OF SYSTEMS: Otherwise negative. ALLERGIES: No known drug allergies. SOCIAL HISTORY: She is a smoker and works in housekeeping. FAMILY HISTORY: Noncontributory. CURRENT MEDICATIONS: Include vancomycin, Colace, Lovenox and Toradol. Other meds are available and had reviewed in the chart. PHYSICAL EXAMINATION: VITAL SIGNS: She is afebrile, temperature 98.1, pulse 98, respirations 18, blood pressure 123/75, satting 98% on room air. CONSTITUTIONAL: She is very pleasant, cooperative. She is in no acute distress. HEENT: Pupils are equal and reactive to light and accommodation with normal conjunctivae. Oral cavity, oropharynx is clear. She is eating. NECK: Supple, no JVD. LUNGS: Clear to auscultation. HEART: S1, S2. ABDOMEN: Soft, nontender, nondistended, positive bowel sounds. EXTREMITIES: No clubbing, cyanosis or gross edema. SKIN: Warm to touch without signs of rash. She has a tattoo. Perirectal area is without inflammation. She has got a small wound that was packed with Nu Gauze. There is no gross erythema, tenderness or fluctuance associated with it. LABORATORY DATA: Today, white count of 16.4, hemoglobin 5, platelets of 219, 85 segs and 2 bands. Creatinine is 0.5, glucose of 117 with normal liver function study test. ASSESSMENT: 1. Perirectal abscess with gram-negative rods currently on the culture. 2. Status post incision and drainage and fifth. 3. Leukocytosis, status post dexamethasone. 4. History of skin and soft tissue injury with methicillin-resistant Staphylococcus aureus. RECOMMENDATIONS: We will discontinue the vancomycin dose Invanz x 1. She can be discharged home on Augmentin. She follows up at [facility]. I explained that she needs to follow up on 07/07/2016, and if she worsens, needs to return. This was discussed with family members. Thank you for allowing us to participate in the patient's care. If you have any questions, please do not hesitate to contact me. BROOKLYNN JEFFRIES MD DR: CLARISSA/ham JOB#: [id number] / [id number]
== END 2016-07-05 14:58 | disposition home or self-care (01) | DRG 854 ==
LOC: 6 SOUTH 11:29
PROVIDERS: ADMIT Internal Medicine; ATTEND Internal Medicine
PROC: 0D9P0ZZ Drainage of Rectum, Open Approach (ICD-10-PCS; principal; 2016-07-04 14:00)
DX: A41.9 Sepsis, unspecified organism (principal); K61.1 Rectal abscess; E44.0 Moderate protein-calorie malnutrition; F17.210 Nicotine dependence, cigarettes, uncomplicated; F41.9 Anxiety disorder, unspecified; K62.89 Other specified diseases of anus and rectum; Z86.14 Personal history of Methicillin resistant Staphylococcus aureus infection
CPT/HCPCS: 36415; 80053; 85007; 85027; 86703; 87040; 87071; 87075; 87205; A4215; J1100; J1885; J2250; J2405; J2704; J3010; J3370; J7040; J7050; J7030